=== PATIENT | female | born 1990 | race Caucasian/White ===

== ENCOUNTER 2021-06-27 09:01 | Outpatient (CLI) | payer OTHER | END 2021-06-27 09:12 | disposition home or self-care (01) | LOC: RX STUDY 09:01 | PROVIDERS: ATTEND Obstetrics & Gynecology Reproductive Endocrinology | DX: E28.8 Other ovarian dysfunction (principal) ==

== ENCOUNTER → 2021-12-25 | Emergency (ER) | payer OTHER ==
[~2021-12-25] VITALS: Ht 162.6 cm; Wt 89.8 kg
[~2021-12-25] MED LIST: METFORMIN HCL500 M3; PRENA1 TRUE CO1 EACH; SYNTHROID50 MCG
== END | disposition left against medical advice (07) ==
LOC: ER 20:46
DX: O26.892 Other specified pregnancy related conditions, second trimester (principal); Z3A.18 18 weeks gestation of pregnancy; J00 Acute nasopharyngitis [common cold]; R50.9 Fever, unspecified; R05.9 Cough, unspecified; R10.9 Unspecified abdominal pain; Z88.6 Allergy status to analgesic agent; Z88.0 Allergy status to penicillin

== ENCOUNTER 2022-05-01 09:20 | Outpatient (CLI) | payer OTHER | END 2022-05-01 11:03 | disposition home or self-care (01) | LOC: NST 09:20 | PROVIDERS: ATTEND Obstetrics & Gynecology Gynecology | DX: Z34.83 Encounter for supervision of other normal pregnancy, third trimester (principal) ==

== ENCOUNTER 2022-05-08 10:43 | Outpatient (CLI) | payer OTHER | END 2022-05-08 12:02 | disposition home or self-care (01) | LOC: NST 10:43 | PROVIDERS: ATTEND Obstetrics & Gynecology | DX: Z34.83 Encounter for supervision of other normal pregnancy, third trimester (principal) ==

== ENCOUNTER 2022-05-18 14:46 | Inpatient (IN) | payer OTHER ==
[~2022-05-18] VITALS: Ht 157.5 cm; Wt 98.9 kg
== END 2022-05-25 12:47 | disposition home or self-care (01) | DRG 788 ==
LOC: LDR 14:46 → O/R 05-23 19:44 → OB/GYN 05-23 21:20
PROVIDERS: ADMIT Obstetrics & Gynecology Gynecology; ATTEND Obstetrics & Gynecology Gynecology
PROC: 4A1HXCZ Monitoring of Products of Conception, Cardiac Rate, External Approach (ICD-10-PCS; 2022-05-22)
PROC: 10D00Z1 Extraction of Products of Conception, Low, Open Approach (ICD-10-PCS; principal; 2022-05-23 22:00)
DX: O62.0 Primary inadequate contractions (principal); O36.63X0 Maternal care for excessive fetal growth, third trimester, not applicable or unspecified; Z3A.39 39 weeks gestation of pregnancy; Z37.0 Single live birth; Z20.822 Contact with and (suspected) exposure to COVID-19

== ENCOUNTER 2022-05-22 09:45 | Outpatient (CLI) | payer OTHER | END 2022-05-22 10:25 | disposition home or self-care (01) | LOC: NST 09:45 | PROVIDERS: ATTEND Obstetrics & Gynecology Maternal & Fetal Medicine | DX: Z34.83 Encounter for supervision of other normal pregnancy, third trimester (principal) ==